=== PATIENT | female | born 1960 | race Caucasian/White ===

== ENCOUNTER → 2020-06-30 | Outpatient (CLI) | payer BC ==
[2020-06-30 10:28] VITALS: BP 152/91; PULSE 82; RESP 18; TEMP 98.3
--- NOTE | 2020-06-30 11:11 | P.GSHP ---
History of Present Illness H&P Date: 06/30/20 Chief Complaint: abnormal right breast mammogram Nancy is a 59 year old white female seen in consultation for Teagan Carter regarding a right breast mammographic abnormality. Right breast mammogram was done on . This revealed a small density in the right mid addressed in follow-up in 6 months was recommended. No lesions of concern were noted in the left breast. She has not noted any lumps masses or nodules in her breast. She does not complain of any nipple discharge or skin changes. caffeine: 5 cups of coffee/day nicotine: none marcello-bromine: daily hormones: none Family History: daughter: of breast cancer/metastatic father: prostate cancer Hormonal History: menarche: 12 , 1 miscarriage, 2 abortions, breast fed: yes, age at first : 17 menopause: one ovary, hysterectomy at 21; after a torn uterus at the time of an BCP: 1 year Medical History: anxiety/depression high cholesterol hiatal hernia Surgical History: hysterectomy heel spur knee replacement shoulder repair bladder suspension carpal tunnel rectal prolapse Social History: smoke: used to smoke 1/PPD for 40 years stopped 6 years ago alcohol: beer several times/week drugs: Marijuana daily for diabetic - Constitutional Constitutional: Reports sweats - EENT Eyes: denies blurred vision, denies pain Ears: bilateral: tinnitus, deny: decreased hearing Ears, nose, mouth and throat: Denies headache, Denies sore throat - Breasts Breasts: bilateral: as per HPI - Cardiovascular Cardiovascular: Denies chest pain, Denies shortness of breath - Respiratory Comment: former smoker - Gastrointestinal Gastrointestinal: Denies abdominal pain, Denies diarrhea, Denies nausea, Denies vomiting - Genitourinary (Female) Genitourinary: Denies dysuria, Denies hematuria - Menstruation Menstruation: Reports post hysterectomy - Musculoskeletal Musculoskeletal: Denies myalgias - Integumentary Integumentary: Denies pruritus, Denies rash - Neurological Neurological: Reports numbness, Reports weakness - Psychiatric Psychiatric: Reports anxiety, Reports depression - Endocrine Endocrine: Denies fatigue, Denies weight change - Hematologic/Lymphatic Comment: none - Allergic/Immunologic Allergic/Immunologic: Reports as per HPI Past Medical History History of Any Multi-Drug Resistant Organisms: None Reported Smoking Status: Former smoker Medications and Allergies Home Medications Medication Instructions Recorded Confirmed Type Atorvastatin [Lipitor] 20 mg PO DAILY 06/30/20 06/30/20 History Omeprazole [PriLOSEC] 20 mg PO AC-BID 06/30/20 06/30/20 History Venlafaxine HCl ER [Effexor Xr] 150 mg PO DAILY 06/30/20 06/30/20 History Allergies Allergy/AdvReac Type Severity Reaction Status Date / Time No Known Allergies Allergy Unverified 06/30/20 10:22 Surgical - Exam Vital Signs Temp Pulse Resp BP Pulse Ox 98.3 F 82 18 152/91 99 06/30/20 10:24 06/30/20 10:24 06/30/20 10:24 06/30/20 10:24 06/30/20 10:24 BMI 30.8 - General no distress - Eyes normal ocular movement - ENT no hearing loss - Neck no masses, trachea midline - Respiratory normal expansion, normal respiratory effort, clear to auscultation - Cardiovascular Rhythm: regular Heart Sounds: normal: S1, S2 - Abdomen Abdomen: soft - Integumentary normal turgor - Neurologic no disoriented, no combative - Musculoskeletal normal gait - Psychiatric oriented to time, oriented to person, oriented to place, speech is normal, memory intact breast exam: bra 38C inspection: Bilateral grade 3 ptosis Palpation: Right breast: Multiple positional exam fibrocystic changes, no dominant masses or nodules of concern Right axilla: No adenopathy of concern Left breast: Multiple positional exam fibrocystic changes no dominant masses or nodules of concern Left axilla: No adenopathy of concern Results Mammogram results reviewed Assessment and Plan Assessment: Impression: 1. Mammographic abnormality right breast from February 2020 2. Fibrocystic breast changes 3. Family history of breast cancer/daughter 4. High cholesterol 5. GERD 6. Anxiety/depression Plan: 1. Discussed causes of fibrocystic breast changes and recommend to decrease caffeine intake 2. Repeat right breast mammogram in August 2020 with physician exam at that time 3. To follow up sooner if any questions or concerns CC: Leola Carter encounter 45 minutes, > 50% of time in planning and counselling
== END | disposition home or self-care (01) ==
LOC: WWCWWP 09:31
PROVIDERS: ATTEND Surgery
DX: Z53.9 Procedure and treatment not carried out, unspecified reason (principal)

== ENCOUNTER → 2020-09-01 | Outpatient (CLI) | payer BC ==
[2020-09-01 09:10] VITALS: BP 150/89; PULSE 78; RESP 18; TEMP 97.9
--- NOTE | 2020-09-01 09:57 | P.PN ---
Subjective Progress Note Date: 09/01/20 Principal diagnosis: Persistent nodular density right breast Nancy is a 59 year old white female seen in consultation for Teagan Carter regarding a right breast mammographic abnormality. Right breast mammogram was done on . This revealed a small density in the right mid addressed in follow-up in 6 months was recommended. No lesions of concern were noted in the left breast. She has not noted any lumps masses or nodules in her breast. She does not complain of any nipple discharge or skin changes. She is not complaining of any pain in her breast. She had a repeat right breast mammogram [place] [id number]. This revealed a nodular density measuring 2.9 cm in maximum diameter located 5.7 cm from the nipple. caffeine: 5 cups of coffee/day nicotine: none marcello-bromine: daily hormones: none Family History: daughter: of breast cancer/metastatic father: prostate cancer Hormonal History: menarche: 12 , 1 miscarriage, 2 abortions, breast fed: yes, age at first : 17 menopause: one ovary, hysterectomy at 21; after a torn uterus at the time of an BCP: 1 year Medical History: anxiety/depression high cholesterol hiatal hernia Surgical History: hysterectomy heel spur knee replacement shoulder repair bladder suspension carpal tunnel rectal prolapse Social History: smoke: used to smoke 1/PPD for 40 years stopped 6 years ago alcohol: beer several times/week drugs: Marijuana daily for diabetic - Constitutional Constitutional: Reports sweats - EENT Eyes: denies blurred vision, denies pain Ears: bilateral: tinnitus, deny: decreased hearing Ears, nose, mouth and throat: Denies headache, Denies sore throat - Breasts Breasts: bilateral: as per HPI - Cardiovascular Cardiovascular: Denies chest pain, Denies shortness of breath - Respiratory Comment: former smoker - Gastrointestinal Gastrointestinal: Denies abdominal pain, Denies diarrhea, Denies nausea, Denies vomiting - Genitourinary (Female) Genitourinary: Denies dysuria, Denies hematuria - Menstruation Menstruation: Reports post hysterectomy - Musculoskeletal Musculoskeletal: Denies myalgias - Integumentary Integumentary: Denies pruritus, Denies rash - Neurological Neurological: Reports numbness, Reports weakness - Psychiatric Psychiatric: Reports anxiety, Reports depression - Endocrine Endocrine: Denies fatigue, Denies weight change - Hematologic/Lymphatic Comment: none - Allergic/Immunologic Allergic/Immunologic: Reports as per HPI Objective - Vital Signs Vital signs: Vital Signs Temp 97.9 F 09/01/20 09:08 Pulse 78 09/01/20 09:08 Resp 18 09/01/20 09:08 BP 150/89 09/01/20 09:08 Pulse Ox 98 09/01/20 09:08 Intake & Output 08/31/20 09/01/20 09/01/20 18:59 06:59 18:59 Weight 79.379 kg - Exam BMI 31 - Constitutional General appearance: Present: average body habitus - EENT Eyes: Present: EOMI ENT: Present: hearing grossly normal - Neck Neck: Present: normal ROM - Respiratory Respiratory: bilateral: CTA - Cardiovascular Rhythm: regular Heart sounds: normal: S1, S2 - Gastrointestinal General gastrointestinal: Present: soft - Integumentary Integumentary: Present: normal turgor - Musculoskeletal Musculoskeletal: Present: gait normal - Psychiatric Psychiatric: Present: A&O x's 3, appropriate affect, intact judgment & insight - Additional findings Additional findings: Inspection: BRA: 40C inspection: Bilateral grade 2/3 ptosis Palpation: Right breast: Multiple positional exam fibrocystic changes, no dominant masses or nodules of concern Right axilla: No adenopathy of concern Left breast: Multiple positional exam fibrocystic changes, no dominant masses or nodules of concern Left axilla: No adenopathy of concern Assessment and Plan Assessment: Impression: 1. Mammographic abnormality right breast being followed from February 2020/most recent mammogram shows persistent [place] [id number] 2. Fibrocystic breast changes 3. Family history of breast cancer/daughter 4. High cholesterol 5. GERD 6. Anxiety/depression Plan: 1. The patient is going to have further diagnostic workup of the right breast, this will start with an ultrasound and if no cystic lesion is seen will be followed by diagnostic compression views of the right breast if the lesion persists then stereotactic core biopsy will most likely be recommended CC: Shay Carter
--- NOTE | 2020-09-01 11:30 | USB ---
Reason for exam: clinical finding. Physical Findings: Breast exam performed by Dr. Arreola. US Breast Limited RT Right limited breast ultrasound including focal area of concern, retroareolar and axilla demonstrates a 6 x 3 x 5mm oval, mixed lesion at 9 o'clock. These results were verbally communicated with the patient and result sheet given to the patient on 09/01/20. ASSESSMENT: Incomplete: need additional imaging evaluation, BI-RAD 0 RECOMMENDATION: Special view mammogram of the right breast.
--- NOTE | 2020-09-01 11:32 | MM ---
Reason for exam: clinical finding. Last mammogram was performed less than 1 month ago. Physical Findings: Breast exam performed by Dr. Arreola. MG 3D Diag Mammo W/Cad RT Spot compression CC, spot compression MLO, and LM view(s) were taken of the right breast. Prior study comparison: August 24, 2020, mammogram. Finding: There is a persistent 3.8 mm circumscribed round mass located 6 cm from the nipple in the lower outer quadrant, middle position of the right breast. Stable from comparison. These results were verbally communicated with the patient and result sheet given to the patient on 09/01/20. ASSESSMENT: Probably benign, BI-RAD 3 RECOMMENDATION: Follow-up diagnostic mammogram of the right breast in 6 months.
== END ==
LOC: WWCWWP 08:51
PROVIDERS: ATTEND Surgery
DX: N63.10 Unspecified lump in the right breast, unspecified quadrant (principal); N60.12 Diffuse cystic mastopathy of left breast; N60.11 Diffuse cystic mastopathy of right breast; Z80.3 Family history of malignant neoplasm of breast; E78.00 Pure hypercholesterolemia, unspecified; F32.9 Major depressive disorder, single episode, unspecified; K21.9 Gastro-esophageal reflux disease without esophagitis; F41.9 Anxiety disorder, unspecified; Z79.899 Other long term (current) drug therapy; Z87.891 Personal history of nicotine dependence
CPT/HCPCS: 77061; 77065

== ENCOUNTER → 2021-03-06 | Outpatient (CLI) | payer BC ==
--- NOTE | 2021-03-06 12:16 | MM ---
Reason for exam: follow-up at short interval from prior study. Last mammogram was performed 6 months ago. History: Patient is postmenopausal. Family history of breast cancer in daughter at age 33. Took hormonal contraceptives for 1 year. Physical Findings: Nurse did not find any significant physical abnormalities on exam. MG 3D Diag Mammo W/Cad DOMINIC Bilateral CC and MLO view(s) were taken. Prior study comparison: September 01, 2020, right breast MG 3d diag mammo w/cad RT. August 24, 2020, mammogram. There are scattered fibroglandular densities. Focal asymmetry upper right breast is stable. These results were verbally communicated with the patient and result sheet given to the patient on 03/06/21. ASSESSMENT: Incomplete: need additional imaging evaluation, BI-RAD 0 RECOMMENDATION: Ultrasound of the right breast.
--- NOTE | 2021-03-06 12:18 | USB ---
Reason for exam: additional evaluation requested from abnormal screening. History: Patient is postmenopausal. Family history of breast cancer in daughter at age 33. Took hormonal contraceptives for 1 year. US Breast Limited RT Right limited breast ultrasound including focal area of concern, retroareolar and axilla demonstrates a 7 x 3 x 6mm lobular, mixed lesion at 9 o'clock, visualized on prior. These results were verbally communicated with the patient and result sheet given to the patient on 03/06/21. ASSESSMENT: Probably benign, BI-RAD 3 RECOMMENDATION: Follow-up diagnostic mammogram and ultrasound of the right breast in 6 months.
== END | disposition home or self-care (01) ==
LOC: RADMAMWWP 10:54
PROVIDERS: ATTEND Surgery
DX: N64.89 Other specified disorders of breast (principal); Z78.0 Asymptomatic menopausal state; Z80.3 Family history of malignant neoplasm of breast; Z79.3 Long term (current) use of hormonal contraceptives
CPT/HCPCS: 77062; 77066

== ENCOUNTER 2021-06-15 08:50 | Day surgery (SDC) | payer BC ==
--- NOTE | 2021-06-15 07:38 | P.GSHP ---
History of Present Illness H&P Date: 06/15/21 CHIEF COMPLAINT: GERD HISTORY OF PRESENT ILLNESS: The patient is a 60-year-old female who presents reports gastroesophageal reflux disease. Upper endoscopy was offered for further evaluation and management. PAST MEDICAL HISTORY: Please see list. PAST SURGICAL HISTORY: Please see list. MEDICATIONS: Please see list. ALLERGIES: Please see list. SOCIAL HISTORY: No illicit drug use FAMILY HISTORY: No reports of Crohn disease or ulcerative colitis. REVIEW OF ORGAN SYSTEMS: CONSTITUTIONAL: No reports of fevers or chills. GI: Denies any blood in stools or constipation. PHYSICAL EXAM: VITAL SIGNS: Stable GENERAL: Well-developed and pleasant in no acute distress. HEENT: No scleral icterus. Extraocular movements grossly intact. Moist buccal mucosa. NECK: Supple without lymphadenopathy. CHEST: Unlabored respirations. Equal bilateral excursions. CARDIOVASCULAR: Regular rate and rhythm. Distal 2+ pulses. ABDOMEN: Soft, nondistended. MUSCULOSKELETAL: No clubbing, cyanosis, or edema. ASSESSMENT: 1. Gastroesophageal reflux disease PLAN: 1. Recommend proceeding with an upper endoscopy Past Medical History History of Any Multi-Drug Resistant Organisms: None Reported Smoking Status: Former smoker Medications and Allergies Home Medications Medication Instructions Recorded Confirmed Type Atorvastatin [Lipitor] 20 mg PO DAILY 06/30/20 09/01/20 History Omeprazole [PriLOSEC] 20 mg PO AC-BID 06/30/20 09/01/20 History Venlafaxine HCl ER [Effexor Xr] 150 mg PO DAILY 06/30/20 09/01/20 History Allergies Allergy/AdvReac Type Severity Reaction Status Date / Time No Known Allergies Allergy Unverified 03/06/21 11:28
[2021-06-15 09:21] VITALS: RESP 16; TEMP 96.8
[2021-06-15] MEDS ORDERED: LACTATED RINGERS 1,000 ML IV ONE (09:34)
[2021-06-15] MEDS ORDERED: PROPOFOL 10 MG/ML 20 ML VIAL IV ONE (10:41)
[2021-06-15] MEDS ORDERED: LACTATED RINGERS 1,000 ML IV SCH (10:41)
--- NOTE | 2021-06-15 11:08 | P.PCN ---
Date of Procedure: 06/15/21 Description of Procedure: PREOPERATIVE DIAGNOSIS: Gastroesophageal reflux disease. POSTOPERATIVE DIAGNOSIS: Gastritis. Gastroesophageal reflux disease. Diaphragmatic hiatal hernia OPERATION: Esophagogastroduodenoscopy with biopsies along antrum. SURGEON: Lili Salas MD ANESTHESIA: MAC. INDICATIONS: The patient is a 60-year-old female who presents with a history of reflux disease. Benefits and risks of the procedure were described. Informed consent was obtained. DESCRIPTION: The patient was brought into the endoscopy suite and laid in the left lateral decubitus position. An Olympus gastroscope was passed along the posterior oropharynx down to the distal esophagus where the squamocolumnar junction was encountered at 35 cm from the incisors. The stomach was entered and no bile reflux was found. Additional findings are listed below. Biopsies with cold forceps were obtained of the antrum. The first through third portion of the duodenum was examined. Retroflexion of the scope confirmed Hill grade 3 lower esophageal valve. The squamocolumnar junction demonstrated LA grade B erosive e sophagitis. The stomach was desufflated. The patient tolerated the procedure well. FINDINGS: Squamocolumnar junction 35 cm from the incisors. Diaphragmatic hiatus at 38 cm. Hiatal hernia, 3 cm Hill grade 3 lower esophageal valve. LA grade B erosive esophagitis. Mild duodenitis. Chronic gastritis RECOMMENDATIONS: Upper endoscopy as needed. Plan - Discharge Summary New Discharge Prescriptions: Continue Venlafaxine HCl ER [Effexor XR] 150 mg PO DAILY Omeprazole [PriLOSEC] 20 mg PO AC-BID Atorvastatin [Lipitor] 20 mg PO DAILY Discharge Medication List Atorvastatin [Lipitor] 20 mg PO DAILY 06/30/20 [History] Omeprazole [PriLOSEC] 20 mg PO AC-BID 06/30/20 [History] Venlafaxine HCl ER [Effexor XR] 150 mg PO DAILY 06/30/20 [History] Follow up Appointment(s)/Referral(s): Lili Salas MD [STAFF PHYSICIAN] - 07/04/21 Patient Instructions/Handouts: *Surgery [facility] - (Anesthesia) Endoscopy Discharge Instructions, Hiatal Hernia (DC), Gastritis (DC), Diet for Stomach Ulcers and Gastritis (ED) Discharge Disposition: HOME SELF-CARE
[2021-06-15 11:15] VITALS: BP 168/86; PULSE 72
== END 2021-06-15 12:00 | disposition home or self-care (01) ==
LOC: ORWHC2ENDO 08:50
PROVIDERS: ATTEND Surgery Plastic and Reconstructive Surgery
DX: K29.50 Unspecified chronic gastritis without bleeding (principal); K22.10 Ulcer of esophagus without bleeding; K29.80 Duodenitis without bleeding; K21.9 Gastro-esophageal reflux disease without esophagitis; K44.9 Diaphragmatic hernia without obstruction or gangrene; E78.5 Hyperlipidemia, unspecified; Z87.891 Personal history of nicotine dependence; Z79.899 Other long term (current) drug therapy
CPT/HCPCS: 88305; 43239; J2704

== ENCOUNTER → 2023-11-14 | Day surgery (SDC) | payer BC, OTHER ==
[2023-11-12 15:41] VITALS: BMI 32.8
[~2023-11-14] MED LIST: DEXAMETHASONE SOD PHOSPHATE 4 MG/ML 1 ML VIAL ONE; ESMOLOL 100 MG/10 ML VIAL ONE; HYDROmorphone (PF) 1 MG/ML ONE; HYDROmorphone 0.5 MG/0.5 ML SYRINGE IVP PRN; KETAMINE HCL IN 0.9 % NACL 50 MG/5 ML SYRINGE ONE; LACTATED RINGERS 1,000 ML IV SCH; LIDOCAINE 1% (10MG/ML) FOR IV START INTRADERMA PRN; LIDOCAINE 1% INJ 10MG/ML (20 ML MDV) ONE; METOPROLOL TARTRATE 5 MG/5 ML VIAL IVP ONE; MIDAZOLAM 2 MG/2 ML VIAL IV PRN; PHENYLEPHRINE-0.9% NACL SYG 1,000 MCG/10 ML SYRINGE ONE; PROPOFOL 10 MG/ML 20 ML VIAL IV ONE; SODIUM CHLORIDE 0.9% (PF) 10 ML VIAL ONE; SUCCINYLCHOLINE CHLORIDE 200 MG/10 ML VIAL IV ONE; fentaNYL (PF) 50 MCG/ML 2 ML AMP ONE
[2023-11-14] MEDS: DEXAMETHASONE SOD PHOSPHATE 4 MG/ML 1 ML VIAL IV ONE (13:02)
[2023-11-14] MEDS: ONDANSETRON 4 MG/2 ML VIAL IVP ONE (13:02)
[2023-11-14] MEDS: IV FLUID CONTINUATION 1,000 ML IV ONE (13:04)
[2023-11-14] MEDS: MIDAZOLAM 2 MG/2 ML VIAL IVP ONE (13:07)
[2023-11-14] MEDS: fentaNYL (PF) 50 MCG/ML 2 ML AMP IVP ONE (13:08)
[2023-11-14 13:15] LABS: Basophils % (A) 0 %; Eosinophils # (A) 0.1 k/uL (0-0.7); Eosinophils % (A) 1 %; HCT 45.1 % (34.0-46.0); HGB 14.7 gm/dL (11.4-16.0); Lymphocytes # (A) 2.1 k/uL (1.0-4.8); Lymphocytes % (A) 25 %; MCH 30.8 pg (25.0-35.0); MCHC 32.6 g/dL (31.0-37.0); MCV 94.4 fL (80.0-100.0); Mean Platelet Volume 8.9; Monocytes # (A) 0.6 k/uL (0-1.0); Monocytes % (A) 7 %; Neutrophils # (A) 5.4 k/uL (1.3-7.7); Neutrophils % (A) 64 %; Platelet Count 256 k/uL (150-450); RBC 4.77 m/uL (3.80-5.40); RDW 13.4 % (11.5-15.5); WBC 8.4 k/uL (3.8-10.6)
[2023-11-14 13:25] LABS: African American GFR (CKD) >90 (>60 ml/min/1.73 sqM); Anion Gap 5 mmol/L; Blood Urea Nitrogen 15 mg/dL (7-17); Calcium 9.7 mg/dL (8.4-10.2); Carbon Dioxide 23 mmol/L (22-30); Chloride 107 mmol/L (98-107); Glucose 97 mg/dL (74-99); Non-African American GFR(CKD) >90 (>60 ml/min/1.73 sqM); Potassium 4.4 mmol/L (3.5-5.1); Sodium 135 mmol/L (137-145)
[2023-11-14] MEDS: BUPIVACAINE (PF) 0.5% 30 ML VIAL SQ ONE (14:18)
--- NOTE | 2023-11-14 14:21 | P.HPOR ---
History of Present Illness H&P Date: 11/13/23 Subjective: This is a 63 year old female that presents today for initial evaluation regarding a right wrist injury that occurred on November 06, 2019 when she fell at work on a piece of plastic that was attached to a pallet. She fell and tried to break her fall with her wrist and had a immediate pain and swelling in the wrist. She is right hand dominant. She works at a grocery store. Physical Examination: RUE: AIN/PIN/Radial/Ulnar/Median motor intact. Radial/Ulnar/Median SILT. 2+/4 Radial/Ulnar pulses palpated. 5/5 APB, 5/5 FDI. Splint clean dry and intact, EPL/FPL intact. Imaging: X-Rays of the right wrist 2V taken in office today demonstrates intra-articular distal radius fracture with radial displacement of 20%. Impression: 1.) Right intra-articular distal radius fracture Plan: Diagnosis and treatment options were discussed with the patient. We discussed findings of a right displaced distal radius fracture. Due to the amount of displacement seen on follow up imaging today I recommend surgical intervention in the form of a right distal radius fracture open reduction internal fixation. Risks and benefits of surgery including bleeding, infection, damage to surrounding tissue, need for further surgery, residual numbness were discussed and the patient wished to go forward with surgery. The patient was agreeable with this plan. -Sánchez Scott DO Orthopedic Hand/Upper Extremity Surgeon Past Medical History Past Medical History: GERD/Reflux, Hyperlipidemia, Hypertension Additional Past Medical History / Comment(s): HIATAL HERNIA, "I'm supposed to [facility] [place] "I've had pain in my left foot." "I had a Ganglion cyst removed to lt ankle they think the dr may have cut it too close to the nerve so the scar tissue is rubbing on the nerve and causing irritation." History of Any Multi-Drug Resistant Organisms: None Reported Past Surgical History: Back Surgery, Hysterectomy, Orthopedic Surgery Additional Past Surgical History / Comment(s): RIGHT ROTATOR CUFF REPAIR, RIGHT TOTAL KNEE x2 last one Apr 2023., HEEL SPUR RIGHT removed, LEFT 5TH DIGIT SURGERY on "baby toe." Ganglion cyst removed from lt ankle. Bladder suspension. Rectal surgery. Past Anesthesia/Blood Transfusion Reactions: No Reported Reaction Additional Past Anesthesia/Blood Transfusion Reaction / Comment(s): No hx of blood transfusion. Smoking Status: Former smoker - Past Family History Daughter(s) History Unknown: Yes Family Medical History: Cancer Additional Family Medical History / Comment(s): BREAST CANCER Medications and Allergies Home Medications Medication Instructions Recorded Confirmed Type Atorvastatin [Lipitor] 20 mg PO QAM 06/30/20 11/12/23 History Venlafaxine HCl ER [Effexor XR] 150 mg PO QAM 06/30/20 11/12/23 History Cephalexin [Keflex] 500 mg PO Q6HR 7 Days #28 cap 11/06/23 11/12/23 Rx HYDROcodone/APAP 7.5-325MG [[place] 1 tab PO Q6HR PRN 3 Days #12 tab 11/06/23 11/12/23 Rx 7.5-325] Naproxen Sodium 550 mg PO BID PRN #30 tablet 11/06/23 11/12/23 Rx [id number] (Unknown Dose) 1 dose PO Q6H PRN 11/12/23 11/12/23 History Esomeprazole Magnesium [NexIUM] 20 mg PO BID 11/12/23 11/12/23 History Ibuprophen (Unknown Dose) 1 dose PO Q6H PRN 11/12/23 11/12/23 History Allergies Allergy/AdvReac Type Severity Reaction Status Date / Time No Known Allergies Allergy Verified 11/12/23 14:55 Physical Examination Osteopathic Statement: *. No significant issues noted on an osteopathic structural exam other than those noted in the History and Physical/Consult.
[2023-11-14] MEDS: BACITRACIN ZINC 500 UNIT/GM OINT 28.4 GM TUBE TOPICAL ONE (14:49)
--- NOTE | 2023-11-14 15:22 | P.ANPRN ---
Procedure Note - Anesthesia - Nerve Block Performed Right Supraclavicular Single Time Out Performed: Yes Date of Procedure: 11/14/23 Procedure Start Time: 13:07 Procedure Stop Time: 13:12 Location of Patient: PreOp Indication: Acute Post-Operative Pain, Requested by Surgeon Sedation Type: Sedate with meaningful contact maintained Preparation: Sterile Prep Position: Supine Needle Types: Pajunk Needle Gauge: 21 Ultrasound used to visualize needle placement: Yes Ultrasound used to observe medication spread: Yes Injectate: 0.5% Ropivacaine (see comment for volume) (25 ml + +4 mg dexamethasone) Blood Aspirated: No Pain Paresthesia on Injection Noted: No Resistance on Injection: Normal Image Stored and Saved: Yes Events: Uneventful and Well Tolerated
[2023-11-14] MEDS: METOPROLOL TARTRATE 5 MG/5 ML VIAL IVP ONE (16:46)
[2023-11-14] MEDS: ENALAPRILAT 1.25 MG/ML 1 ML VIAL IVP ONE (16:50)
[2023-11-14] MEDS: LACTATED RINGERS 1,000 ML IV ONE (17:02)
[2023-11-14 17:18] VITALS: TEMP 97.2
[2023-11-14 18:03] VITALS: BP 153/86; PULSE 89; RESP 18
--- NOTE | 2023-11-14 21:20 | P.OP ---
Date of Procedure: 11/14/23 Preoperative Diagnosis: Right intra-articular distal radius fracture Postoperative Diagnosis: Right intra-articular distal radius fracture Procedure(s) Performed: Open reduction internal fixation of right intra-articular distal radius fracture, greater than 3 parts. Implants: [place] short narrow volar distal radius locking plate Anesthesia: JIM, regional Surgeon: Sánchez Scott Estimated Blood Loss (ml): 30 Pathology: none sent Condition: stable Disposition: PACU Description of Procedure: This is a 63 year old female who sustained a displaced intra-articular distal radius fracture and presents today for open reduction internal fixation of their right distal radius fracture. Risks and benefits of surgery were discussed with the patient including bleeding, damage to surrounding tissue, infection, need for further surgery as well as risks of anesthesia including pulmonary embolism and even and the patient wished to proceed with surgical intervention. The patients was seen in the pre-operative area by myself. Consent and H&P were completed and updated. The correct extremity was marked in the pre-operative area by myself and all other questions were answered. Operative Narrative: The patient was brought to the operating room by the department of anesthesia. They remained on the portable stretcher and a rolling hand table was brought to the side of the operative extremity. Pre-operative time out was pe rformed indicating the correct patient, procedure and laterality. All in the room agreed. Pre-operative antibiotics were given prior to skin incision. The patient was then drifted off to sleep by the department of anesthesia. A nonsterile tourniquet was then applied to the operative extremity and the right upper extremity was then prepped and draped in normal sterile fashion. The operative extremity was the exsanguinated with an esmarch bandage and the tourniquet was inflated to 250mmHg. A longitudinal incision centered over the FCR tendon was made with a 15-blade scalpel. Blunt dissection was taken down to the FCR tendon sheath using Bovie cautery for meticulous hemostasis. The FCR sheath was opened with tenotomy scissors. The floor of the FCR sheath was then incised with a 15-blade scalpel and the FPL tendon and muscle belly was swept bluntly in an ulnar direction to reveal the pronator quadratus. Pronator quadratus was sharply incised with a 15-blade scalpel along the radial border of the distal radius, coming across transversely parallel to the joint at the level of the watershed line, radial artery was identified and protected. Periosteal elevator was then used to el evate the pronator quadratus off the distal radius from a radial to ulnar fashion. There was extensive comminution along the radial column with a large free floating cortical wafer that appeared to coming from the radial styloid cortex, the free floating piece of cortex was temporarily removed, there was essentially a large chunk of the radial column that was void of any cancellous or cortical structure due to impaction. In order to aid in reduction the brachioradialis tendon was carefully dissected off and released to assist in ulnar translation of the distal segment. A [place] elevator was used to lever the distal piece back into place and free up the fractured fragments. A short and narrow width 3 hole [place] [employer] 2 titanium volar locking distal radius plate was chosen to fit the patients anatomy best. This was placed on the distal radius under direct visualization and the oblong hole was drilled and filled with a non-locking screw. The fracture was then reduced to the plate distally and a k-wire was placed in the ulnar most k-wire hole in the proximal row. Fluoroscopy was then utilized to confirm correct placement of plate in the radial/ulnar plane and distal k-wire placement was confirmed to be proximal to the subchondral bone on 20 degree elevated lateral view confirming extra- articular screw placement. [employer] of radial height, inclination and volar tilt was achieved. The distal rows and radial styloid screw holes were then drilled and filled from ulnar to radial with locking screws, the previously removed large floating cortex piece was inserted back into the the region of the radial column to fill some of the cortical void Attention was then brought to the proximal shaft screws. Proximal nonlocking and locking shaft screws were drilled, measured, and filled. The wrist joint was the ranged and full smooth flexion/extension/pronation/supination with no crepitus appreciated. Final imaging was taken confirming extra-articular placement of distal screws at DRUJ and radiocarpal joint. The wound was then irrigated. Tourniquet was let down and the hand had immediate perfusion and bovie cautery was used for hemostasis. Subcutaneous closure was performed with 4-0 monocryl followed by running 4-0 monocryl suture. Sterile dressing consisting of adaptic, 4x4s, and a volar plaster splint was applied. Sánchezbruno Scott D.O. Orthopedic Hand/Upper Extremity Surgeon
== END | disposition home or self-care (01) ==
LOC: OR 12:22
PROVIDERS: ATTEND Orthopaedic Surgery Hand Surgery
DX: S52.571A Other intraarticular fracture of lower end of right radius, initial encounter for closed fracture (principal); E78.5 Hyperlipidemia, unspecified; G89.18 Other acute postprocedural pain; I10 Essential (primary) hypertension; K21.9 Gastro-esophageal reflux disease without esophagitis; Z87.891 Personal history of nicotine dependence; Z79.899 Other long term (current) drug therapy; X58.XXXA Exposure to other specified factors, initial encounter
CPT/HCPCS: 64415; 80048; 85025; 25609; C1713; J2250; J0330; J1100; J0690; J2405; J2001; J3010; J1170; J2704; J2371; J0665; J1805